=== PATIENT | male | born 1945 | race Caucasian/White ===

== ENCOUNTER 2018-07-30 16:21 | Emergency (ER) | payer MEDICARE ==
[~2018-07-30] VITALS: Wt 55.3 kg
[~2018-07-30 16:21] MED LIST: DUO-KAPS1 CAP PO; EFFEXOR25 MG; IRON324 M1 PO; ST. JOSEPH81 M2 PO
[2018-07-30 17:11] LABS: HEMATOCRIT 43.6 % (42.0-52.0); MEAN CELL VOLUME 85 fl (78-100); MEAN CORPUSCULAR HEMOGLOBIN 27 pg (27-31); MEAN CORPUSCULAR HGB CONC 32 g/dL (33-37); MEAN PLATELET VOLUME 9.7 fl (7.4-10.4); PLATELET COUNT 441 K/mm3 (130-400); RED BLOOD COUNT 5.11 M/mm3 (4.20-5.60); WHITE BLOOD COUNT 17.1 K/mm3 (4.8-10.8)
[2018-07-30 17:13] LABS: ALBUMIN 4.6 g/dL (3.5-5.0); CALCIUM 9.5 mg/dL (8.4-10.2); POTASSIUM 4.4 mmol/L (3.6-5.0); TOTAL BILIRUBIN 0.4 mg/dL (0.2-1.3); TOTAL PROTEIN 7.6 g/dL (6.3-8.2)
[2018-07-30] MEDS ORDERED: TRAVATAN Z 2.52.5 ML OU (17:21)
[2018-07-30] MEDS ORDERED: ATORVASTATIN CA10 MG PO (17:22)
[2018-07-30] MEDS ORDERED: NEURONTIN300 M1 PO (17:22)
[2018-07-30] MEDS ORDERED: PRILOSEC OTC20 MG PO (17:23)
[2018-07-30] MEDS ORDERED: FLUTICASON0.05 MG/AC NS (17:24)
[2018-07-30 17:27] LABS: LYMPHOCYTE 12 % (20-51); MONOCYTE 7 % (3-10); NEUTROPHILS 77 % (42-75)
[2018-07-30 18:00] LABS: PH-URINE 5.5 (5.0 - 8.0); URINE APPEARANCE CLEAR; URINE BILIRUBIN NEGATIVE (NEGATIVE); URINE BLOOD NEGATIVE (NEGATIVE); URINE COLOR YELLOW; URINE GLUCOSE NEGATIVE (NEGATIVE); URINE KETONE NEGATIVE (NEGATIVE); URINE LEUKOCYTE ESTERASE TRACE (NEGATIVE); URINE NITRATE NEGATIVE (NEGATIVE); URINE PROTEIN(semi-quant) TRACE mg/dL (NEGATIVE); URINE UROBILINOGEN NORMAL (NORMAL); URINE WBC 0-1 /hpf (0-3)
[2018-07-30 20:33] VITALS: BP 151/91
[2018-07-30 21:15] LABS: D-DIMER 0.77 mg/L FEU (0.15-0.50)
== END 2018-07-30 20:52 | disposition short-term general hospital (02) ==
LOC: ED 16:21
PROVIDERS: Nurse Practitioner Family
DX: I71.4 Abdominal aortic aneurysm, without rupture (principal); K55.069 Acute infarction of intestine, part and extent unspecified; I70.1 Atherosclerosis of renal artery; E78.5 Hyperlipidemia, unspecified; K21.9 Gastro-esophageal reflux disease without esophagitis; J44.9 Chronic obstructive pulmonary disease, unspecified; C61 Malignant neoplasm of prostate; I77.9 Disorder of arteries and arterioles, unspecified; Z86.73 Personal history of transient ischemic attack (TIA), and cerebral infarction without residual deficits; Z87.442 Personal history of urinary calculi; Z79.899 Other long term (current) drug therapy; F17.210 Nicotine dependence, cigarettes, uncomplicated; Z79.82 Long term (current) use of aspirin
CPT/HCPCS: J1885; J2405; J3010; J7030; Q9967

== ENCOUNTER 2019-02-04 10:28 | Emergency (ER) | payer MEDICARE ==
[~2019-02-04] VITALS: Wt 51.9 kg
[~2019-02-04 10:28] MED LIST changes: +ATORVASTATIN CA10 MG PO; +FLUTICASON0.05 MG/AC NS; +NEURONTIN300 M1 PO; +PRILOSEC OTC20 MG PO; +TRAVATAN Z 2.52.5 ML OU
[2019-02-04 10:58] LABS: BASO # 0.1 (0.02-0.10); EOS # 0.2 (0.04-0.40); EOS % 3.2 % (0.0-4.0); HEMATOCRIT 39.9 % (42.0-52.0); HEMOGLOBIN 12.3 g/dL (13.5-18.0); LYMPH# 1.7 (1.50-4.00); MEAN CELL VOLUME 86 fl (78-100); MEAN CORPUSCULAR HEMOGLOBIN 27 pg (27-31); MEAN CORPUSCULAR HGB CONC 31 g/dL (33-37); MEAN PLATELET VOLUME 9.8 fl (7.4-10.4); MONO # 0.6 (0.20-0.80); NEU # 4.2 (1.40-6.50); PLATELET COUNT 367 K/mm3 (130-400); RED BLOOD COUNT 4.62 M/mm3 (4.20-5.60); RED CELL DISTRIBUTION WIDTH 15.3 % (11.5-14.5); WHITE BLOOD COUNT 6.8 K/mm3 (4.8-10.8)
[2019-02-04 11:02] LABS: ALBUMIN 3.8 g/dL (3.4-4.8); POTASSIUM 3.8 mmol/L (3.5-5.1); SODIUM 140 mmol/L (136-145)
[2019-02-04 11:04] LABS: CALCIUM 9.3 mg/dL (8.3-10.5)
[2019-02-04 11:05] LABS: GLUCOSE 91 mg/dL (75-110); TOTAL PROTEIN 6.8 g/dL (6.2-8.1)
[2019-02-04 11:06] LABS: CARBON DIOXIDE 23 mmol/L (23-31)
[2019-02-04 11:07] LABS: TOTAL BILIRUBIN 0.4 mg/dL (0.2-1.2)
[2019-02-04 11:10] LABS: AST-SGOT 17 U/L (5-34)
[2019-02-04 11:11] LABS: ALT/SGPT 12 U/L (0-55)
[2019-02-04] MEDS ORDERED: VENLAFAXINE HY150 MG PO (11:23)
[2019-02-04] MEDS ORDERED: AMLODIPINE BESYL5 MG PO (11:23)
[2019-02-04 11:26] LABS: TROPONIN-I < 0.03 ng/mL (<0.030)
[2019-02-04 11:33] LABS: PROTHROMBIN TIME 9.8 SECONDS (9.0-12.0)
[2019-02-04 13:07] LABS: PH-URINE 5.5 (5.0 - 8.0); URINE APPEARANCE CLEAR; URINE COLOR YELLOW
[2019-02-04 13:08] LABS: URINE BILIRUBIN NEGATIVE (NEGATIVE); URINE BLOOD NEGATIVE (NEGATIVE); URINE GLUCOSE NEGATIVE (NEGATIVE); URINE KETONE NEGATIVE (NEGATIVE); URINE LEUKOCYTE ESTERASE NEGATIVE (NEGATIVE); URINE NITRATE NEGATIVE (NEGATIVE); URINE PROTEIN(semi-quant) TRACE mg/dL (NEGATIVE); URINE UROBILINOGEN NORMAL (NORMAL)
[2019-02-04 14:44] VITALS: BP 120/72
== END 2019-02-04 14:40 | disposition short-term general hospital (02) ==
LOC: ED 10:28
PROVIDERS: Nurse Practitioner Primary Care
DX: G45.9 Transient cerebral ischemic attack, unspecified (principal); J44.9 Chronic obstructive pulmonary disease, unspecified; I10 Essential (primary) hypertension; K21.9 Gastro-esophageal reflux disease without esophagitis; F17.210 Nicotine dependence, cigarettes, uncomplicated; Z87.442 Personal history of urinary calculi; Z98.890 Other specified postprocedural states; Z79.82 Long term (current) use of aspirin
CPT/HCPCS: Q9967

== ENCOUNTER → 2021-01-29 | Outpatient (CLI) | payer MEDICARE ==
[~2021-01-29] MED LIST changes: +AMLODIPINE BESYL5 MG PO; +VENLAFAXINE HY150 MG PO
[2021-01-29 18:10] LABS: BASO # 0.15 (0.02-0.10); EOS # 0.15 (0.04-0.40); EOS % 1.7 % (0.0-4.0); HEMATOCRIT 26.4 % (42.0-52.0); HEMOGLOBIN 7.4 g/dL (13.5-18.0); LYMPH# 1.34 (1.50-4.00); MEAN CELL VOLUME 79 fl (78-100); MEAN CORPUSCULAR HEMOGLOBIN 22 pg (27-31); MEAN CORPUSCULAR HGB CONC 28 g/dL (33-37); MEAN PLATELET VOLUME 9.2 fl (7.4-10.4); MONO # 0.58 (0.20-0.80); NEU # 6.57 (1.40-6.50); RED BLOOD COUNT 3.35 M/mm3 (4.20-5.60); RED CELL DISTRIBUTION WIDTH 15.8 % (11.5-14.5); WHITE BLOOD COUNT 8.8 K/mm3 (4.8-10.8)
[2021-01-29 18:27] LABS: POTASSIUM 4.3 mmol/L (3.5-5.1)
[2021-01-29 18:28] LABS: CALCIUM 9.2 mg/dL (8.3-10.5)
[2021-01-29 18:31] LABS: TOTAL BILIRUBIN 0.2 mg/dL (0.2-1.2)
[2021-01-29 18:32] LABS: PLATELET COUNT 574 K/mm3 (130-400)
== END ==
LOC: LAB 17:50
PROVIDERS: Family Medicine
DX: Z00.00 Encounter for general adult medical examination without abnormal findings (principal); D64.9 Anemia, unspecified; E78.5 Hyperlipidemia, unspecified; C61 Malignant neoplasm of prostate

== ENCOUNTER → 2021-01-30 | Outpatient (CLI) | payer MEDICARE | LOC: RAD 12:53 | DX: M41.86 Other forms of scoliosis, lumbar region (principal); M47.816 Spondylosis without myelopathy or radiculopathy, lumbar region; I71.4 Abdominal aortic aneurysm, without rupture; N32.89 Other specified disorders of bladder; N20.0 Calculus of kidney | CPT/HCPCS: Q9967 ==

== ENCOUNTER → 2021-01-31 | Outpatient (CLI) | payer MEDICARE ==
[2021-01-31 13:35] LABS: EOS # 0.16 (0.04-0.40); EOS % 2.8 % (0.0-4.0); HEMATOCRIT 23.3 % (42.0-52.0); LYMPH# 1.35 (1.50-4.00); MEAN CELL VOLUME 79 fl (78-100); MEAN CORPUSCULAR HEMOGLOBIN 22 pg (27-31); MEAN CORPUSCULAR HGB CONC 28 g/dL (33-37); MEAN PLATELET VOLUME 9.1 fl (7.4-10.4); MONO # 0.51 (0.20-0.80); NEU # 3.56 (1.40-6.50); PLATELET COUNT 490 K/mm3 (130-400); RED BLOOD COUNT 2.96 M/mm3 (4.20-5.60); RED CELL DISTRIBUTION WIDTH 16.3 % (11.5-14.5); WHITE BLOOD COUNT 5.7 K/mm3 (4.8-10.8)
[2021-01-31 14:17] LABS: HEMOGLOBIN 6.5 g/dL (13.5-18.0)
== END ==
LOC: LAB 12:32
PROVIDERS: Family Medicine
DX: D64.9 Anemia, unspecified (principal)

== ENCOUNTER → 2021-02-01 | Outpatient (CLI) | payer MEDICARE ==
[2021-02-01] VITALS (12 sets, daily range): BP systolic 116–162; BP diastolic 60–99
--- NOTE | 2021-02-01 14:21 | NUR ---
PT CURRENTLY RECIEVING 1 UNIT OF PBRCS. PT IS TOLERATING INFUSION WELL. NO S/S OF COMPLICATION.
--- NOTE | 2021-02-01 16:00 | NUR ---
2ND UNIT OF PBRCS STARTED. AT 15 MIN, PT IS TOLERATING THE BLOOD W/O COMPLICATION. PT IS DRINKING COFFEE AND HAS URINATED X 1. NO C/O PAIN OR DISCOMFORT. PT MORE STABLE ON HIS FEET.
--- NOTE | 2021-02-01 17:03 | NUR ---
PT SITTING IN BED EATING DINNER. PT STILL TOLERATING INFUSION. PT CHEERFUL AND TALKATIVE.
--- NOTE | 2021-02-01 18:06 | NUR ---
PT VOIDED X 3 INDEPENDENTLY IN THE RESTROOM. URINE UNMEASURED.
[2021-02-01 21:45] LABS: HEMATOCRIT 28.8 % (42.0-52.0); MEAN PLATELET VOLUME 9.4 fl (7.4-10.4); RED BLOOD COUNT 3.65 M/mm3 (4.20-5.60); RED CELL DISTRIBUTION WIDTH 15.6 % (11.5-14.5); WHITE BLOOD COUNT 6.7 K/mm3 (4.8-10.8)
--- NOTE | 2021-02-01 21:45 | NUR ---
Lab in to draw CBC. notified of patient ready to be picked up. Assisted via W/C to [facility] care. D/C in stable condition.
== END ==
LOC: AMSURD 13:29
PROVIDERS: Family Medicine
DX: D64.9 Anemia, unspecified (principal)

== ENCOUNTER → 2021-03-20 | Outpatient (CLI) | payer MEDICARE | LOC: AMSURD 15:10 | DX: R06.02 Shortness of breath (principal) ==

== ENCOUNTER → 2021-03-21 | Outpatient (CLI) | payer MEDICARE | LOC: RAD 14:14 | DX: R06.02 Shortness of breath (principal) ==

== ENCOUNTER → 2021-04-24 | Outpatient (CLI) | payer MEDICARE | LOC: RAD 13:56 | DX: I08.3 Combined rheumatic disorders of mitral, aortic and tricuspid valves (principal) ==

== ENCOUNTER → 2021-04-27 | Outpatient (CLI) | payer MEDICARE | LOC: CARDREHAB 07:51 | DX: R06.02 Shortness of breath (principal) | CPT/HCPCS: A9500 ==

== ENCOUNTER → 2022-01-18 | Outpatient (CLI) | payer MEDICARE | LOC: RAD 08:54 | DX: R91.1 Solitary pulmonary nodule (principal); R06.02 Shortness of breath; R10.9 Unspecified abdominal pain; R05.3 Chronic cough ==

== ENCOUNTER → 2023-12-10 | Outpatient (CLI) | payer MEDICARE ==
[~2023-12-10] MED LIST changes: +ALBUTEROL SULF6.7 GM; +AUGMENTIN 500-1 EACH PO; +BUDESONIDE-FO10.2 G1; +CLOPIDOGREL75 M2 PO; +LATANOPROST 2.2.5 ML OU; +LEXAPRO5 MG PO; +LIPITOR 40MG TA40 MG PO; +NEURONTIN300 MG/CAP PO; +TIMOLOL MALEATE10 M1; +TRAMADOL HCL100 MG PO; +VALACYCLOVIR1 GM PO; +VAZALORE81 MG PO
== END ==
LOC: RAD 09:55
DX: J43.9 Emphysema, unspecified (principal); R91.8 Other nonspecific abnormal finding of lung field

== ENCOUNTER 2024-03-18 09:24 | Emergency (ER) | payer MEDICARE ==
[~2024-03-18] VITALS: Ht 162.6 cm; Wt 53.2 kg
[2024-03-18] MEDS ORDERED: NS 1,000 ML IV SCH ×2 (10:00→13:00)
[2024-03-18] MEDS ORDERED: TIMOPTIC OCUDOSE0.5% IO (10:00)
[2024-03-18] MEDS ORDERED: XALATAN 2.5 ML2.5 ML OU (10:03)
[2024-03-18 10:09] LABS: BASO # 0.05 K/mm3 (0.02-0.10); EOS # 0.05 K/mm3 (0.04-0.40); EOS % 0.4 % (0.0-4.0); HEMATOCRIT 39.6 % (42.0-52.0); HEMOGLOBIN 11.9 g/dL (13.5-18.0); LYMPH# 1.28 K/mm3 (1.50-4.00); MEAN CELL VOLUME 82 fl (78-100); MEAN CORPUSCULAR HEMOGLOBIN 25 pg (27-31); MEAN CORPUSCULAR HGB CONC 30 g/dL (33-37); MEAN PLATELET VOLUME 8.8 fl (7.4-10.4); MONO # 1.16 K/mm3 (0.20-0.80); NEU # 8.74 K/mm3 (1.40-6.50); PLATELET COUNT 376 K/mm3 (130-400); RED BLOOD COUNT 4.83 M/mm3 (4.20-5.60); RED CELL DISTRIBUTION WIDTH 15.6 % (11.5-14.5); WHITE BLOOD COUNT 11.3 K/mm3 (4.8-10.8)
[2024-03-18 10:14] LABS: ALBUMIN 3.3 g/dL (3.4-4.8); SODIUM 138 mmol/L (136-145)
[2024-03-18 10:15] LABS: CALCIUM 9.7 mg/dL (8.3-10.5)
[2024-03-18 10:16] LABS: GLUCOSE 93 mg/dL (75-110); TOTAL PROTEIN 6.5 g/dL (6.2-8.1)
[2024-03-18 10:17] LABS: CARBON DIOXIDE 23 mmol/L (23-31)
[2024-03-18 10:18] LABS: TOTAL BILIRUBIN 0.8 mg/dL (0.2-1.2)
[2024-03-18 10:21] LABS: AST-SGOT 9 U/L (5-34)
[2024-03-18 10:27] LABS: ALT/SGPT < 6 U/L (0-55)
[2024-03-18 13:02] LABS: URINE APPEARANCE CLOUDY (CLEAR); URINE COLOR YELLOW (YELLOW); URINE GLUCOSE NEGATIVE (NEGATIVE); URINE PROTEIN(semi-quant) 3+ (NEGATIVE)
[2024-03-18 13:03] LABS: URINE BILIRUBIN NEGATIVE (NEGATIVE); URINE BLOOD 3+ (NEGATIVE); URINE KETONE TR (NEGATIVE); URINE LEUKOCYTE ESTERASE 3+ (NEGATIVE); URINE NITRATE POSITIVE (NEGATIVE); URINE WBC >50 /hpf (0-3)
[2024-03-18] MEDS ORDERED: cefTRIAXone 1 G in Water For Injection,Sterile 10 ML IV ONE (13:45)
[2024-03-18] MEDS ORDERED: CEPHALEXIN500 M1 PO (13:55)
[2024-03-18 14:39] VITALS: BP 130/76
== END 2024-03-18 14:13 | disposition home or self-care (01) ==
LOC: ED 09:24
PROVIDERS: Nurse Practitioner
DX: N39.0 Urinary tract infection, site not specified (principal); J44.9 Chronic obstructive pulmonary disease, unspecified; E86.0 Dehydration; R53.1 Weakness; R54 Age-related physical debility; Z74.09 Other reduced mobility; Z87.891 Personal history of nicotine dependence
CPT/HCPCS: J0696; J7030

== ENCOUNTER 2024-04-10 06:12 | Emergency (ER) | payer MEDICARE ==
[~2024-04-10] VITALS: Ht 162.6 cm; Wt 47.8 kg
[~2024-04-10 06:12] MED LIST changes: +CEPHALEXIN500 M1 PO; +TIMOPTIC OCUDOSE0.5% IO; +XALATAN 2.5 ML2.5 ML OU
[2024-04-10] MEDS ORDERED: ESCITALOPRAM20 MG PO (06:49)
[2024-04-10] MEDS ORDERED: NEURONTIN300 MG/CAP (06:50)
[2024-04-10] MEDS ORDERED: PANTOPRAZOLE SO40 MG PO (06:51)
[2024-04-10] MEDS ORDERED: QUETIAPINE FUMA25 M3 PO (06:51)
[2024-04-10 07:06] LABS: BASO # 0.03 K/mm3 (0.02-0.10); EOS # 0.16 K/mm3 (0.04-0.40); EOS % 1.4 % (0.0-4.0); HEMATOCRIT 37.9 % (42.0-52.0); HEMOGLOBIN 11.8 g/dL (13.5-18.0); LYMPH# 1.29 K/mm3 (1.50-4.00); MEAN CELL VOLUME 81 fl (78-100); MEAN CORPUSCULAR HEMOGLOBIN 25 pg (27-31); MEAN CORPUSCULAR HGB CONC 31 g/dL (33-37); MEAN PLATELET VOLUME 8.9 fl (7.4-10.4); NEU # 9.32 K/mm3 (1.40-6.50); PLATELET COUNT 359 K/mm3 (130-400); RED CELL DISTRIBUTION WIDTH 17.5 % (11.5-14.5); WHITE BLOOD COUNT 11.7 K/mm3 (4.8-10.8)
[2024-04-10] MEDS ORDERED: Iohexol 300 - 100 ML VIAL IV ONE (07:32)
[2024-04-10 07:37] LABS: ALBUMIN 3.2 g/dL (3.4-4.8)
[2024-04-10 07:39] LABS: CALCIUM 9.5 mg/dL (8.3-10.5)
[2024-04-10 07:40] LABS: TOTAL PROTEIN 6.1 g/dL (6.2-8.1)
[2024-04-10 08:10] LABS: TOTAL BILIRUBIN 0.5 mg/dL (0.2-1.2)
[2024-04-10 09:06] LABS: URINE APPEARANCE TURBID (CLEAR); URINE BILIRUBIN NEGATIVE (NEGATIVE); URINE BLOOD 2+ (NEGATIVE); URINE COLOR YELLOW (YELLOW); URINE GLUCOSE NEGATIVE (NEGATIVE); URINE KETONE NEGATIVE (NEGATIVE); URINE LEUKOCYTE ESTERASE 3+ (NEGATIVE); URINE NITRATE NEGATIVE (NEGATIVE); URINE PROTEIN(semi-quant) 2+ (NEGATIVE)
[2024-04-10 09:13] LABS: URINE WBC >50 /hpf (0-3)
[2024-04-10] MEDS ORDERED: NS 1,000 ML IV SCH (09:30)
[2024-04-10] MEDS ORDERED: cefTRIAXone 1 G in Water For Injection,Sterile 10 ML IV ONE (09:30)
[2024-04-10] MEDS ORDERED: CEPHALEXIN500 M1 PO (11:44)
[2024-04-10 12:41] VITALS: BP 144/69
== END 2024-04-10 12:01 | disposition home or self-care (01) ==
LOC: ED 06:12
PROVIDERS: Family Medicine
DX: S09.90XA Unspecified injury of head, initial encounter (principal); S59.911A Unspecified injury of right forearm, initial encounter; N39.0 Urinary tract infection, site not specified; E86.0 Dehydration; W18.30XA Fall on same level, unspecified, initial encounter; Y92.009 Unspecified place in unspecified non-institutional (private) residence as the place of occurrence of the external cause
CPT/HCPCS: J0696; J7030; Q9967

== ENCOUNTER 2024-05-04 11:56 | Emergency (ER) | payer MEDICARE ==
[~2024-05-04] VITALS: Ht 167.6 cm; Wt 46.8 kg
[~2024-05-04 11:56] MED LIST changes: +ESCITALOPRAM20 MG PO; +NEURONTIN300 MG/CAP; +PANTOPRAZOLE SO40 MG PO; +QUETIAPINE FUMA25 M3 PO
[2024-05-04 12:32] LABS: BASO # 0.03 K/mm3 (0.02-0.10); EOS # 0.18 K/mm3 (0.04-0.40); EOS % 2.4 % (0.0-4.0); HEMATOCRIT 36.3 % (42.0-52.0); HEMOGLOBIN 11.3 g/dL (13.5-18.0); LYMPH# 1.76 K/mm3 (1.50-4.00); MEAN CELL VOLUME 83 fl (78-100); MEAN CORPUSCULAR HEMOGLOBIN 26 pg (27-31); MEAN CORPUSCULAR HGB CONC 31 g/dL (33-37); MONO # 0.61 K/mm3 (0.20-0.80); NEU # 4.77 K/mm3 (1.40-6.50); PLATELET COUNT 346 K/mm3 (130-400); RED CELL DISTRIBUTION WIDTH 18.7 % (11.5-14.5); WHITE BLOOD COUNT 7.4 K/mm3 (4.8-10.8)
[2024-05-04 12:42] LABS: ALBUMIN 3.3 g/dL (3.4-4.8); SODIUM 141 mmol/L (136-145)
[2024-05-04 12:43] LABS: CALCIUM 9.6 mg/dL (8.3-10.5)
[2024-05-04 12:44] LABS: GLUCOSE 83 mg/dL (75-110)
[2024-05-04 12:45] LABS: TOTAL PROTEIN 6.5 g/dL (6.2-8.1)
[2024-05-04 12:46] LABS: CARBON DIOXIDE 23 mmol/L (23-31); TOTAL BILIRUBIN 0.6 mg/dL (0.2-1.2)
[2024-05-04 12:50] LABS: AST-SGOT 12 U/L (5-34)
[2024-05-04 12:51] LABS: ALT/SGPT 7 U/L (0-55)
[2024-05-04 12:57] LABS: TROPONIN-I < 0.030 ng/mL (0.00-0.033)
[2024-05-04] MEDS ORDERED: BREYNA 80-4.510.3 GM IN (13:00)
[2024-05-04] MEDS ORDERED: ASPIRIN E.C. 8181 MG PO (13:01)
[2024-05-04] MEDS ORDERED: TRAMADOL HCL100 MG PO (13:02)
[2024-05-04 13:38] LABS: URINE APPEARANCE CLEAR (CLEAR); URINE BILIRUBIN NEGATIVE (NEGATIVE); URINE BLOOD NEGATIVE (NEGATIVE); URINE COLOR DARK YELLOW (YELLOW); URINE GLUCOSE NEGATIVE (NEGATIVE); URINE KETONE NEGATIVE (NEGATIVE); URINE LEUKOCYTE ESTERASE NEGATIVE (NEGATIVE); URINE NITRATE NEGATIVE (NEGATIVE); URINE PROTEIN(semi-quant) NEGATIVE (NEGATIVE)
[2024-05-04 13:39] LABS: URINE MUCUS PRESENT (NOT PRESENT)
[2024-05-04 14:10] VITALS: BP 109/76
== END 2024-05-04 14:10 | disposition home or self-care (01) ==
LOC: ED 11:56
PROVIDERS: Physician Assistant
DX: M25.532 Pain in left wrist (principal); R53.81 Other malaise; W01.0XXA Fall on same level from slipping, tripping and stumbling without subsequent striking against object, initial encounter